=== PATIENT | female | born 1955 | race Caucasian/White ===

== ENCOUNTER 2017-03-08 18:04 | Inpatient (IN) | payer BC ==
[2017-03-08] MEDS ORDERED: Sodium Chloride 0.9% 10 ML Syringe FLUSH PRN (19:11)
[2017-03-08] MEDS ORDERED: Sodium Chloride 0.9% 1,000 ML IV SCH ×3 (19:30→22:20)
[2017-03-08] MEDS ORDERED: Acetaminophen 1,000 MG in Premix Bag 1 BAG IV ONE (20:06)
--- NOTE | 2017-03-08 20:18 | EDM.PDOC ---
ED HPI GENERAL MEDICAL PROBLEM - General Chief Complaint: Fever Stated Complaint: FEVER/DISORIENTED Time Seen by Provider: 03/08/17 18:45 Source of Information: Reports: Patient, Family History Limitations: Reports: Altered Mental Status - History of Present Illness INITIAL COMMENTS - FREE TEXT/NARRATIVE: Patient presents today with complaints of fever for 4 days. She states when checked at home, it has been as high as 104. She denies pain, nausea, vomiting , diarrhea, constipation or wounds. She was recently hospitalized in [place] for cellulitis of her left elbow and completed antibiotics for it three weeks ago. She currently uses 1ppd cigarettes. She denies use of illicit drugs. or pain medication. 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 Denies: Decreased Appetite, Weight Loss HEENT: Denies: Dental Pain, Ear Pain, Eye Pain, Rhinitis, Sinus Problem, Throat Pain, Vertigo, Vision Change Respiratory: Reports: Cough. Denies: Shortness of Breath, Wheezing, Sputum Cardiovascular: Denies: Chest Pain, Dyspnea on Exertion, Edema, Lightheadedness , Palpitations, PND, Syncope Endocrine: Denies: High Glucose, Low Glucose, Polyuria GI/Abdominal: Denies: Abdominal Pain, Black Stool, Bloody Stool, Constipation, Diarrhea, Difficulty Swallowing, Nausea, Vomiting : Denies: Discharge, Dysuria, Flank Pain, Frequency, Hematuria, Urgency Musculoskeletal: Reports: No Symptoms Skin: Reports: Wound, Other (small round healing lesion to left elbow, slough noted to center of wound <0.5cm in size). Denies: Mottled, Pallor, Bruising, Pruritis, Rash, Erythema Neurological: Reports: Confusion, Change in Speech, Other (Inappropriate speaking/words at times. ). Denies: Dizziness, Headache, Numbness, Seizure, Tingling, Trouble Speaking, Difficulty Walking Hematologic/Lymphatic: Reports: No Symptoms Immunologic: Reports: No Symptoms ED EXAM, SEPSIS - Physical Exam Exam: See Below Text/Narrative:: Patient presents with complaints of fever for 4 days, change in mental status and SOB with activity. Exam Limited By: Altered Mental Status General Appearance: Alert, WD/WN, No Apparent Distress Eye Exam: Bilateral Eye: Normal Inspection, Vision Changes Ears: Normal External Exam, Normal Canal, Hearing Grossly Normal, Normal TMs Nose: Normal Inspection, Normal Mucosa, No Blood Throat/Mouth: Normal Inspection, Normal Lips, Normal Teeth, Normal Gums, Normal Oropharynx, Normal Voice, No Airway Compromise Head: Atraumatic, Normocephalic Neck: Normal Inspection, Supple, Non-Tender, Full Range of Motion Respiratory/Chest: No Respiratory Distress, No Accessory Muscle Use, Chest Non- Tender, Crackles, Rhonchi Cardiovascular: Normal Peripheral Pulses, Regular Rate, Rhythm, No Edema, No Gallop, No Murmur, No Rub Peripheral Pulses: 2+: Radial (L), Radial (R), Dorsalis Pedis (L), Dorsalis Pedis (R) GI/Abdominal: Normal Bowel Sounds, Soft, Non-Tender, No Distention Back: Normal Inspection, Full Range of Motion. No: CVA Tenderness (R), CVA Tenderness (L) Extremities: Normal Inspection, Normal Range of Motion, Non-Tender, No Pedal Edema, Normal Capillary Refill, Other (Normal with exception of healing wound to left elbow. ) Neurological: Alert, Oriented, CN II-XII Intact, Inattentive, Slow to Respond, Other (Not speaking appropriate words at times, restless) Psychiatric: Other (Distracted, not concentrating, inappropriate at times. ) Lymphatic: Bilateral: No Adenopathy EKG INTERPRETATION EKG Date: 03/08/17 Rhythm: NSR P-wave: present QRS: normal ST-T: normal QT: normal Course - Vital Signs Last Recorded V/S: Last Vital Signs Temp 38.4 C H 03/08/17 21:43 Pulse 93 03/08/17 21:43 Resp 20 03/08/17 21:43 BP 167/65 H 03/08/17 21:43 Pulse Ox 94 L 03/08/17 21:43 - Orders/Labs/Meds Orders: Active Orders 24 hr Category Date Time Status Patient Status Manage Transfer [TRANSFER] Routine ADT 03/08/17 21:42 Active EKG Documentation Completion [RC] ASDIRECTED Care 03/08/17 20:21 Active RT Aerosol Therapy [RC] ASDIRECTED Care 03/08/17 20:41 Active Chest 2V [CR] Stat Exams 03/08/17 19:03 Taken CULTURE BLOOD [BC] Urgent Lab 03/08/17 19:15 Received CULTURE BLOOD [BC] Urgent Lab 03/08/17 19:25 Received UA W/MICROSCOPIC [URIN] Stat Lab 03/08/17 19:02 Uncollected Sodium Chloride 0.9% [Normal Saline] 1,000 ml Med 03/08/17 19:30 Active IV ASDIRECTED Sodium Chloride 0.9% [Saline Flush] Med 03/08/17 19:11 Active 10 ml FLUSH ASDIRECTED PRN cefTRIAXone [Rocephin] 2 gm Med 03/08/17 21:45 Active Sodium Chloride 0.9% [Normal Saline] 50 ml IV Q24H Blood Culture x2 Reflex Set [OM.PC] Urgent Oth 03/08/17 19:05 Ordered Saline Lock Insert [OM.PC] Routine Oth 03/08/17 19:11 Ordered Resuscitation Status Routine Resus Stat 03/08/17 21:44 Ordered EKG 12 Lead [EK] Routine Ther 03/08/17 20:21 Ordered Medication Orders Sodium Chloride (Normal Saline) 1,000 mls @ 500 mls/hr IV ASDIRECTED JUIDE Last Admin: 03/08/17 20:22 Dose: 500 mls/hr Ceftriaxone Sodium 2 gm/ (Sodium Chloride) 50 mls @ 100 mls/hr IV Q24H JUDIE Sodium Chloride (Saline Flush) 10 ml FLUSH ASDIRECTED PRN PRN Reason: Keep Vein Open Labs: Laboratory Tests 03/08/17 03/08/17 03/08/17 Range/Units 16:32 19:02 19:07 WBC 6.4 (4.5-11.0) K/uL RBC 4.00 (3.30-5.50) M/uL Hgb 13.4 (12.0-15.0) g/dL Hct 38.8 (36.0-48.0) % MCV 97 (80-98) fL MCH 34 H (27-31) pg MCHC 35 (32-36) % Plt Count 127 L (150-400) K/uL PT (9.5-12.0) sec INR (0.80-1.20) APTT (27.0-36.0) sec Puncture Site ABG pH (7.350-7.450) ABG pCO2 (35.0-42.0) mmHg ABG pO2 (75.0-100.0) mmHg ABG HCO3 (22.0-26.0) mmol/L ABG Total CO2 (21.0-25.0) mmol/L ABG O2 Saturation (95.0-98.0) % ABG O2 Content (15.0-23.0) %vol ABG Base Excess mm/L ABG Hemoglobin (12.0-16.0) g/dL ABG Oxyhemoglobin % ABG Carboxyhemoglobin (0.0-1.6) % ABG Methemoglobin % Addison Test O2 Delivery Device Oxygen Flow Rate L Sodium 134 L (140-148) mmol/L Potassium 4.7 (3.6-5.2) mmol/L Chloride 102 (100-108) mmol/L Carbon Dioxide 20 L (21-32) mmol/L Anion Gap 16.7 H (5.0-14.0) mmol/L BUN 22 H (7-18) mg/dL Creatinine 0.8 (0.6-1.0) mg/dL Est Cr Clr Drug Dosing 51.70 mL/min Estimated GFR (MDRD) > 60 (>60) Glucose 178 H (74-106) mg/dL Lactic Acid 1.6 (0.4-2.0) mmol/L Calcium 8.9 (8.5-10.1) mg/dL Total Bilirubin 0.5 (0.2-1.0) mg/dL AST 46 H (15-37) U/L ALT 39 (12-78) U/L Alkaline Phosphatase 171 H (46-116) U/L C-Reactive Protein (0.0-0.3) mg/dL Total Protein 7.4 (6.4-8.2) g/dL Albumin 3.2 L (3.4-5.0) g/dL Globulin 4.2 H (2.3-3.5) g/dL Albumin/Globulin Ratio 0.8 L (1.2-2.2) 03/08/17 03/08/17 03/08/17 Range/Units 19:07 20:37 20:45 WBC (4.5-11.0) K/uL RBC (3.30-5.50) M/uL Hgb (12.0-15.0) g/dL Hct (36.0-48.0) % MCV (80-98) fL MCH (27-31) pg MCHC (32-36) % Plt Count (150-400) K/uL PT 11.4 (9.5-12.0) sec INR 1.07 (0.80-1.20) APTT 27.1 (27.0-36.0) sec Puncture Site Rt radial ABG pH 7.497 H (7.350-7.450) ABG pCO2 26.1 L (35.0-42.0) mmHg ABG pO2 84.8 (75.0-100.0) mmHg ABG HCO3 20.0 L (22.0-26.0) mmol/L ABG Total CO2 17.7 L (21.0-25.0) mmol/L ABG O2 Saturation 97.2 (95.0-98.0) % ABG O2 Content 16.3 (15.0-23.0) %vol ABG Base Excess -1.7 mm/L ABG Hemoglobin 12.2 (12.0-16.0) g/dL ABG Oxyhemoglobin 94.5 % ABG Carboxyhemoglobin 2.3 H (0.0-1.6) % ABG Methemoglobin 0.5 % Addison Test Pass O2 Delivery Device Nasal cannula Oxygen Flow Rate L Sodium (140-148) mmol/L Potassium (3.6-5.2) mmol/L Chloride (100-108) mmol/L Carbon Dioxide (21-32) mmol/L Anion Gap (5.0-14.0) mmol/L BUN (7-18) mg/dL Creatinine (0.6-1.0) mg/dL Est Cr Clr Drug Dosing mL/min Estimated GFR (MDRD) (>60) Glucose (74-106) mg/dL Lactic Acid (0.4-2.0) mmol/L Calcium (8.5-10.1) mg/dL Total Bilirubin (0.2-1.0) mg/dL AST (15-37) U/L ALT (12-78) U/L Alkaline Phosphatase (46-116) U/L C-Reactive Protein 3.17 H (0.0-0.3) mg/dL Total Protein (6.4-8.2) g/dL Albumin (3.4-5.0) g/dL Globulin (2.3-3.5) g/dL Albumin/Globulin Ratio (1.2-2.2) Meds: Medications Generic Name Dose Route Start Last Admin Trade Name Freq PRN Reason Stop Dose Admin Sodium Chloride 1,000 mls @ 500 mls/hr 03/08/17 19:30 03/08/17 20:22 Normal Saline IV 500 mls/hr ASDIRECTED JUDIE Administration Ceftriaxone Sodium 2 gm/ 50 mls @ 100 mls/hr 03/08/17 21:45 Sodium Chloride IV Q24H JUDIE Sodium Chloride 10 ml 03/08/17 19:11 Saline Flush FLUSH ASDIRECTED PRN Keep Vein Open Discontinued Medications Generic Name Dose Route Start Last Admin Trade Name Freq PRN Reason Stop Dose Admin Albuterol/Ipratropium 3 ml 03/08/17 20:40 03/08/17 20:56 Duoneb 3.0-0.5 Mg/3 Ml NEB 03/08/17 20:41 3 ml ONETIME ONE Administration Acetaminophen 1,000 mg/ Premix 100 mls @ 400 mls/hr 03/08/17 20:06 03/08/17 20:44 IV 03/08/17 20:20 400 mls/hr NOW ONE Administration - Radiology Interpretation Free Text/Narrative:: Chest x-ray wet read, possible infiltrate to right upper lobe. X-ray reviewed with Dr. Casey. - Re-Assessments/Exams Free Text/Narrative Re-Assessment/Exam: 03/08/17 21:08 Patient notified of labwork, chest x-ray and need to stay for further sepsis work-up due to fever of unknown origin. Patient and her daughter in agreement. 03/08/17 21:[address] Casey, she will be admitted. Departure - Departure Time of Disposition: 22:01 Disposition: Admitted As Inpatient 64 Condition: fair Clinical Impression: Fever - Discharge Information Forms: ED Department Discharge - Problem List & Annotations (1) Fever SNOMED Code(s): 835668623 Code(s): R50.9 - FEVER, UNSPECIFIED Status: Acute Current Visit: Yes Qualifiers: Fever type: unspecified Qualified Code(s): R50.9 - Fever, unspecified - Problem List Review Problem List Initiated/Reviewed/Updated: Yes - My Orders Last 24 Hours: My Active Orders 03/08/17 19:02 UA W/MICROSCOPIC [URIN] Stat 03/08/17 19:03 Chest 2V [CR] Stat 03/08/17 19:05 Blood Culture x2 Reflex Set [OM.PC] Urgent 03/08/17 19:11 Sodium Chloride 0.9% [Saline Flush] 10 ml FLUSH ASDIRECTED PRN Saline Lock Insert [OM.PC] Routine 03/08/17 19:15 CULTURE BLOOD [BC] Urgent 03/08/17 19:25 CULTURE BLOOD [BC] Urgent 03/08/17 19:30 Sodium Chloride 0.9% [Normal Saline] 1,000 ml IV ASDIRECTED 03/08/17 20:21 EKG Documentation Completion [RC] ASDIRECTED EKG 12 Lead [EK] Routine 03/08/17 20:41 RT Aerosol Therapy [RC] ASDIRECTED - Assessment/Plan Last 24 Hours: My Active Orders 03/08/17 19:02 UA W/MICROSCOPIC [URIN] Stat 03/08/17 19:03 Chest 2V [CR] Stat 03/08/17 19:05 Blood Culture x2 Reflex Set [OM.PC] Urgent 03/08/17 19:11 Sodium Chloride 0.9% [Saline Flush] 10 ml FLUSH ASDIRECTED PRN Saline Lock Insert [OM.PC] Routine 03/08/17 19:15 CULTURE BLOOD [BC] Urgent 03/08/17 19:25 CULTURE BLOOD [BC] Urgent 03/08/17 19:30 Sodium Chloride 0.9% [Normal Saline] 1,000 ml IV ASDIRECTED 03/08/17 20:21 EKG Documentation Completion [RC] ASDIRECTED EKG 12 Lead [EK] Routine 03/08/17 20:41 RT Aerosol Therapy [RC] ASDIRECTED Assessment:: Makenzie is a 61 year old female presenting with fever and change in mental status. Fever decreased after IV tylenol, breath sounds improved with duo neb. Patient remained tachypnic and with fever. She will be admitted per Dr. Casey.
[2017-03-08] MEDS ORDERED: Albuterol/Ipratropium 3.0-0.5 MG/3 ML Neb Soln NEB ONE (20:40)
[2017-03-08] MEDS ORDERED: cefTRIAXone 2 GM in Sodium Chloride 0.9% 50 ML IV SCH (21:45)
--- NOTE | 2017-03-08 21:53 | PCM.HP ---
H&P History of Present Illness - General Date of Service: 03/08/17 Admit Problem/Dx: Admission Diagnosis/Problem Admission Diagnosis/Problem Fever Source of Information: Patient, Family, Provider History Limitations: Reports: No Limitations - History of Present Illness Initial Comments - Free Text/Narative: Makenzie presents to the emergency room tonight with fever to 103. She first noticed fever, fatigue and headache on Friday, 4 days ago. Symptoms have slowly progressed over the past few days. She has become more fatigued and this evening her family noted that she was confused compared to her baseline. She has had a temperature as high as 105 in the emergency room. She does not endorse a cough, sore throat, chest pain, abdominal pain or increased joint pain from baseline. She had a couple episodes of loose stools a few days ago but this resolved. No urinary complaints. No skin rashes. She did have a small tick stuck to her knee but maybe only for a couple of hours. The tick was not engorged. She does note that her and son-in-law have had similar high fevers and fatigue. They all got better after a few days without any sort of treatment. Workup in the emergency room has revealed probable evidence for sepsis with tachycardia, tachypnea and confusion. The exact source of her infection was not entirely clear at this time. Her examination is relatively benign. Lactic acid level is normal. Given her rheumatoid arthritis causing immunosuppression she is at a high-risk for worsening of her infection and will need close monitoring. 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 Pertinent positives and negatives are noted in the history of present illness. All other systems were reviewed and were negative except as noted. Exam - Exam Exam: See Below - Vital Signs Vital Signs: Last Vital Signs Temp 38.4 C H 03/08/17 21:43 Pulse 93 03/08/17 21:43 Resp 20 03/08/17 21:43 BP 167/65 H 03/08/17 21:43 Pulse Ox 94 L 03/08/17 21:43 Weight: 72.9 kg - Exam Quality Assessment: No: Supplemental Oxygen General: Alert, Oriented, Cooperative, Mild Distress, Other (diaphoretic) HEENT: Conjunctiva Clear, Pupils Equal. No: Mucosa Moist & [place] (dry), Scleral Icterus Neck: Supple, Trachea Midline. No: Lymphadenopathy Lungs: Clear to Auscultation, Normal Respiratory Effort. No: Wheezing Cardiovascular: Regular Rhythm, Tachycardia, Systolic Murmur (LLSB) Abdomen: Normal Bowel Sounds, Soft. No: Distention, Tenderness Back Exam: Normal Inspection, Full Range of Motion Extremities: Normal Inspection, Normal Pulses. No: Cyanosis, Edema Peripheral Pulses: 2+: Dorsalis Pedis (L), Dorsalis Pedis (R) Skin: Warm, Moist Neuro Extensive - Mental Status: Alert, Oriented x3, Nl Response to Commands Neuro Extensive - Motor, Sensory, Reflexes: CN II-XII Intact. No: Dysarthria, Abnormal Motor, Tremor Psychiatric: Alert, Normal Affect - Patient Data Lab Results last 24 hrs: Laboratory Results - last 24 hr 03/08/17 03/08/17 03/08/17 Range/Units 16:32 19:02 19:07 WBC 6.4 (4.5-11.0) K/uL RBC 4.00 (3.30-5.50) M/uL Hgb 13.4 (12.0-15.0) g/dL Hct 38.8 (36.0-48.0) % MCV 97 (80-98) fL MCH 34 H (27-31) pg MCHC 35 (32-36) % Plt Count 127 L (150-400) K/uL PT (9.5-12.0) sec INR (0.80-1.20) APTT (27.0-36.0) sec Puncture Site ABG pH (7.350-7.450) ABG pCO2 (35.0-42.0) mmHg ABG pO2 (75.0-100.0) mmHg ABG HCO3 (22.0-26.0) mmol/L ABG Total CO2 (21.0-25.0) mmol/L ABG O2 Saturation (95.0-98.0) % ABG O2 Content (15.0-23.0) %vol ABG Base Excess mm/L ABG Hemoglobin (12.0-16.0) g/dL ABG Oxyhemoglobin % ABG Carboxyhemoglobin (0.0-1.6) % ABG Methemoglobin % Addison Test O2 Delivery Device Oxygen Flow Rate L Sodium 134 L (140-148) mmol/L Potassium 4.7 (3.6-5.2) mmol/L Chloride 102 (100-108) mmol/L Carbon Dioxide 20 L (21-32) mmol/L Anion Gap 16.7 H (5.0-14.0) mmol/L BUN 22 H (7-18) mg/dL Creatinine 0.8 (0.6-1.0) mg/dL Est Cr Clr Drug Dosing 51.70 mL/min Estimated GFR (MDRD) > 60 (>60) Glucose 178 H (74-106) mg/dL Lactic Acid 1.6 (0.4-2.0) mmol/L Calcium 8.9 (8.5-10.1) mg/dL Total Bilirubin 0.5 (0.2-1.0) mg/dL AST 46 H (15-37) U/L ALT 39 (12-78) U/L Alkaline Phosphatase 171 H (46-116) U/L C-Reactive Protein (0.0-0.3) mg/dL Total Protein 7.4 (6.4-8.2) g/dL Albumin 3.2 L (3.4-5.0) g/dL Globulin 4.2 H (2.3-3.5) g/dL Albumin/Globulin Ratio 0.8 L (1.2-2.2) 03/08/17 03/08/17 03/08/17 Range/Units 19:07 20:37 20:45 WBC (4.5-11.0) K/uL RBC (3.30-5.50) M/uL Hgb (12.0-15.0) g/dL Hct (36.0-48.0) % MCV (80-98) fL MCH (27-31) pg MCHC (32-36) % Plt Count (150-400) K/uL PT 11.4 (9.5-12.0) sec INR 1.07 (0.80-1.20) APTT 27.1 (27.0-36.0) sec Puncture Site Rt radial ABG pH 7.497 H (7.350-7.450) ABG pCO2 26.1 L (35.0-42.0) mmHg ABG pO2 84.8 (75.0-100.0) mmHg ABG HCO3 20.0 L (22.0-26.0) mmol/L ABG Total CO2 17.7 L (21.0-25.0) mmol/L ABG O2 Saturation 97.2 (95.0-98.0) % ABG O2 Content 16.3 (15.0-23.0) %vol ABG Base Excess -1.7 mm/L ABG Hemoglobin 12.2 (12.0-16.0) g/dL ABG Oxyhemoglobin 94.5 % ABG Carboxyhemoglobin 2.3 H (0.0-1.6) % ABG Methemoglobin 0.5 % Addison Test Pass O2 Delivery Device Nasal cannula Oxygen Flow Rate L Sodium (140-148) mmol/L Potassium (3.6-5.2) mmol/L Chloride (100-108) mmol/L Carbon Dioxide (21-32) mmol/L Anion Gap (5.0-14.0) mmol/L BUN (7-18) mg/dL Creatinine (0.6-1.0) mg/dL Est Cr Clr Drug Dosing mL/min Estimated GFR (MDRD) (>60) Glucose (74-106) mg/dL Lactic Acid (0.4-2.0) mmol/L Calcium (8.5-10.1) mg/dL Total Bilirubin (0.2-1.0) mg/dL AST (15-37) U/L ALT (12-78) U/L Alkaline Phosphatase (46-116) U/L C-Reactive Protein 3.17 H (0.0-0.3) mg/dL Total Protein (6.4-8.2) g/dL Albumin (3.4-5.0) g/dL Globulin (2.3-3.5) g/dL Albumin/Globulin Ratio (1.2-2.2) Result Diagrams: 03/08/17 16:32 03/08/17 19:02 Imaging Impressions last 24 hrs: CXR - images personally reviewed - there is no evidence for mass, infiltrate, effusion or cardiomegally. Appears much better than the x ray from a few years ago *Q Meaningful Use (ADM) - VTE *Q VTE Criteria *Q: - VTE Risk Assess *Q Each Risk Factor Represents 1 Point: Obesity (BMI greater than 30) Total Score 1 Point Risk Factors: 1 Each Risk Factor Represents 2 Points: Age 60 - 74 Years Total Score 2 Point Risk Factors: 2 Each Risk Factor Represents 3 Points: None Total Score 3 Point Risk Factors: 0 Each Risk Factor Represents 5 Points: None Total Score 5 Point Risk Factors: 0 Venous Thromboembolism Risk Factor Score *Q: 3 - Stroke *Q Stroke Criteria *Q: - AMI *Q AMI Criteria *Q: - Problem List (1) Fever SNOMED Code(s): 557698390 ICD Code: R50.9 - FEVER, UNSPECIFIED Status: Acute Current Visit: Yes Qualifiers: Fever type: unspecified Qualified Code(s): R50.9 - Fever, unspecified (2) Rheumatoid arthritis SNOMED Code(s): 19507185 ICD Code: M06.9 - RHEUMATOID ARTHRITIS, UNSPECIFIED Status: Chronic Current Visit: Yes Qualifiers: Rheumatoid arthritis location: multiple sites Rheumatoid factor presence: unspecified presence Qualified Code(s): M06.9 - Rheumatoid arthritis, unspecified Problem List Initiated/Reviewed/Updated: Yes Orders Last 24hrs: Active Orders 24 hr Category Date Time Status Patient Status Manage Transfer [TRANSFER] Routine ADT 03/08/17 21:42 Ordered EKG Documentation Completion [RC] ASDIRECTED Care 03/08/17 20:21 Active RT Aerosol Therapy [RC] ASDIRECTED Care 03/08/17 20:41 Active Chest 2V [CR] Stat Exams 03/08/17 19:03 Taken CULTURE BLOOD [BC] Urgent Lab 03/08/17 19:15 Received CULTURE BLOOD [BC] Urgent Lab 03/08/17 19:25 Received UA W/MICROSCOPIC [URIN] Stat Lab 03/08/17 19:02 Uncollected Sodium Chloride 0.9% [Normal Saline] 1,000 ml Med 03/08/17 19:30 Active IV ASDIRECTED Sodium Chloride 0.9% [Saline Flush] Med 03/08/17 19:11 Active 10 ml FLUSH ASDIRECTED PRN cefTRIAXone [Rocephin] 2 gm Med 03/08/17 21:45 Active Sodium Chloride 0.9% [Normal Saline] 50 ml IV Q24H Blood Culture x2 Reflex Set [OM.PC] Urgent Oth 03/08/17 19:05 Ordered Saline Lock Insert [OM.PC] Routine Oth 03/08/17 19:11 Ordered Resuscitation Status Routine Resus Stat 03/08/17 21:44 Ordered EKG 12 Lead [EK] Routine Ther 03/08/17 20:21 Ordered Medication Orders Sodium Chloride (Normal Saline) 1,000 mls @ 500 mls/hr IV ASDIRECTED JUDIE Last Admin: 03/08/17 20:22 Dose: 500 mls/hr Ceftriaxone Sodium 2 gm/ (Sodium Chloride) 50 mls @ 100 mls/hr IV Q24H JUDIE Sodium Chloride (Saline Flush) 10 ml FLUSH ASDIRECTED PRN PRN Reason: Keep Vein Open Assessment/Plan Comment:: Assessment and plan - Fever with sepsis - exact source is not entirely clear at this point. Viral infection is possible. Occult bacterial infection is possible. Blood cultures have been collected. Evidence for sepsis includes tachycardia, fever, tachypnea and confusion. She is immunosuppressed at high risk for complications and will need close monitoring. Tickborne disease is possible but I don't believe that her exposure was all that impressive. -ICU admission with sepsis -Doxycycline and ceftriaxone to cover respiratory pathogens empirically -IV fluid boluses and fluids overnight -Followup cultures -Repeat labs in the morning Rheumatoid arthritis - Chronic, stable no evidence for exacerbation. -Hold methotrexate with current infection Essential hypertension - Blood pressure elevated this evening. Hopefully will improve with fluids. -Continue all medications Type 2 diabetes mellitus - on only metformin. Controlled by history. -Continue metformin Maintenance issues - - DVT prophylaxis - mechanical - GI prophylaxis - Not indicated - Nutrition - consistent carbohydrate diet - Johnson catheter - Not indicated CODE STATUS - full code Admission justification - This patient will be admitted for inpatient services and is medically appropriate meeting medical necessity for inpatient admission as outlined in my documentation. I reasonably expect the patient will require inpatient services that span a period time over 2 midnights. I reasonably expect this patient to be discharged or transferred within 96 hours [facility]. Disposition - anticipate discharge home after the hospital stay Primary care physician - Dr Matthew Casey M.D.
[2017-03-08] MEDS ORDERED: Polyethylene Glycol 3350 Powder 17 GM Packet PO PRN (22:20)
[2017-03-08] MEDS ORDERED: Ondansetron 4 MG Tab.DIS PO PRN (22:20)
[2017-03-08] MEDS ORDERED: Albuterol/Ipratropium 3.0-0.5 MG/3 ML Neb Soln NEB PRN (22:20)
[2017-03-08] MEDS ORDERED: Doxycycline 100 MG in Sodium Chloride 0.9% 100 ML IV SCH (22:30)
[2017-03-09] MEDS: Ibuprofen 600 MG Tab PO PRN ×3 (03:41→19:25)
[2017-03-09] MEDS: metFORMIN 500 MG Tab PO SCH ×2 (07:55→16:15)
[2017-03-09] MEDS: Folic Acid 1 MG Tab PO SCH (07:59)
[2017-03-09] MEDS: amLODIPine 5 MG Tab PO SCH (08:00)
[2017-03-09] MEDS: Lisinopril 20 MG Tab PO SCH (08:01)
[2017-03-09] MEDS ORDERED: Non-Formulary Medication 1 Each (Lisinopril [Lisinopril] 40 MG) PO SCH (09:00)
--- NOTE | 2017-03-09 09:11 | PCM.PN ---
- General Info Date of Service: 03/09/17 Functional Status: Reports: pain controlled, tolerating diet, ambulating - Review of Systems General: Reports: Fever, Weakness Gastrointestinal: Denies: Abdominal pain Neurological: Denies: Confusion, Headache Systems Review Comment:: No acute events overnight. One episode of fever and diaphoresis that responded well to anti-inflammatories. No headache today. Mental status seems to be back to normal. Mild cough overnight but none this morning. No abdominal pain or diarrhea. She feels like the mild redness around her tick bite has improved significantly. - Patient Data Vitals - most recent: Last Vital Signs Temp 36.8 C 03/09/17 07:34 Pulse 78 03/09/17 07:34 Resp 19 03/09/17 07:34 BP 122/68 03/09/17 08:00 Pulse Ox 96 03/09/17 07:34 Weight - most recent: 73.573 kg I&O - last 24 hours: Intake & Output 03/08/17 03/09/17 03/09/17 22:59 06:59 14:59 Intake Total 1050 700 Output Total 800 Balance 1050 -100 Lab Results last 24 hrs: Laboratory Results - last 24 hr 03/08/17 03/09/17 03/09/17 Range/Units 22:19 04:49 04:49 WBC 5.6 (4.5-11.0) K/uL RBC 3.58 (3.30-5.50) M/uL Hgb 11.7 L (12.0-15.0) g/dL Hct 35.1 L (36.0-48.0) % MCV 98 (80-98) fL MCH 33 H (27-31) pg MCHC 33 (32-36) % Plt Count 86 L (150-400) K/uL Sodium 137 L (140-148) mmol/L Potassium 4.0 (3.6-5.2) mmol/L Chloride 106 (100-108) mmol/L Carbon Dioxide 20 L (21-32) mmol/L Anion Gap 15.0 H (5.0-14.0) mmol/L BUN 15 (7-18) mg/dL Creatinine 0.6 (0.6-1.0) mg/dL Est Cr Clr Drug Dosing 68.93 mL/min Estimated GFR (MDRD) > 60 (>60) Glucose 150 H (74-106) mg/dL Calcium 7.9 L (8.5-10.1) mg/dL Total Bilirubin 0.5 (0.2-1.0) mg/dL AST 41 H (15-37) U/L ALT 30 (12-78) U/L Alkaline Phosphatase 119 H (46-116) U/L Total Protein 6.2 L (6.4-8.2) g/dL Albumin 2.7 L (3.4-5.0) g/dL Globulin 3.5 (2.3-3.5) g/dL Albumin/Globulin Ratio 0.8 L (1.2-2.2) Urine Color Yellow Urine Appearance Slightly cloudy Urine pH 5.0 (4.5-8.0) Ur Specific [place] 1.015 (1.008-1.030) Urine Protein Negative (NEGATIVE) mg/dL Urine Glucose (UA) 100 H (NEGATIVE) mg/dL Urine Ketones Negative (NEGATIVE) mg/dL Urine Occult Blood Moderate (NEGATIVE) Urine Nitrite Negative (NEGATIVE) Urine Bilirubin Negative (NEGATIVE) Urine Urobilinogen Normal (NORMAL) mg/dL Ur Leukocyte Esterase Negative (NEGATIVE) Urine RBC 0-5 (0-5) Urine WBC 0-5 (0-5) Ur Epithelial Cells Few Amorphous Sediment Not seen Urine Bacteria Rare Urine Mucus Moderate Med Orders - Current: Current Medications Acetaminophen (Tylenol) 650 mg PO Q4H PRN PRN Reason: Pain (Mild 1-3)/fever Albuterol/Ipratropium (Duoneb 3.0-0.5 Mg/3 Ml) 3 ml NEB QID PRN PRN Reason: Shortness Of Breath/wheezing Last Admin: 03/09/17 03:41 Dose: 3 ml Amlodipine Besylate (Norvasc) 5 mg PO DAILY [facility] Last Admin: 03/09/17 08:00 Dose: 5 mg Folic Acid (Folic Acid) 1 mg PO DAILY [facility] Last Admin: 03/09/17 07:59 Dose: 1 mg Ibuprofen (Motrin) 600 mg PO Q6H PRN PRN Reason: Pain/Fever Last Admin: 03/09/17 03:41 Dose: 600 mg Lisinopril (Prinivil) 40 mg PO DAILY [facility] Last Admin: 03/09/17 08:01 Dose: 40 mg Metformin HCl (Glucophage) 500 mg PO BIDMEALS [facility] Last Admin: 03/09/17 07:55 Dose: 500 mg Ondansetron HCl (Zofran Odt) 4 mg PO Q6H PRN PRN Reason: Nausea able to take PO Polyethylene Glycol (Miralax) 17 gm PO DAILY PRN PRN Reason: Constipation Sodium Chloride (Saline Flush) 10 ml FLUSH ASDIRECTED PRN PRN Reason: Keep Vein Open Discontinued Medications Albuterol/Ipratropium (Duoneb 3.0-0.5 Mg/3 Ml) 3 ml NEB ONETIME ONE Stop: 03/08/17 20:41 Last Admin: 03/08/17 20:56 Dose: 3 ml Sodium Chloride (Normal Saline) 1,000 mls @ 500 mls/hr IV ASDIRECTED [facility] Last Admin: 03/08/17 20:22 Dose: 500 mls/hr Acetaminophen 1,000 mg/ Premix 100 mls @ 400 mls/hr IV NOW ONE Stop: 03/08/17 20:20 Last Admin: 03/08/17 20:44 Dose: 400 mls/hr Ceftriaxone Sodium 2 gm/ (Sodium Chloride) 50 mls @ 100 mls/hr IV Q24H [facility] Last Admin: 03/08/17 22:52 Dose: 100 mls/hr Doxycycline Hyclate 100 mg/ (Sodium Chloride) 100 mls @ 100 mls/hr IV Q12H [facility] Last Admin: 03/08/17 23:35 Dose: 100 mls/hr Sodium Chloride (Normal Saline) 1,000 mls @ 125 mls/hr IV ASDIRECTED [facility] Last Admin: 03/09/17 01:15 Dose: 125 mls/hr Sodium Chloride (Normal Saline) 1,000 mls @ 999 mls/hr IV .BOLUS [facility] Last Admin: 03/08/17 22:44 Dose: 999 mls/hr Ceftriaxone Sodium 2 gm/ (Sodium Chloride) 50 mls @ 100 mls/hr IV Q24H [facility] Non-Formulary Medication (Lisinopril [Lisinopril]) 40 mg PO DAILY [facility] - Exam Quality Assessment: No: supplemental oxygen General: alert, oriented, cooperative, no acute distress Neck: supple Lungs: Normal respiratory effort Cardiovascular: Regular Rate, Regular Rhythm Abdomen: soft, no distension Extremities: no edema, no cyanosis Skin: warm, dry Psy/Mental Status: alert, normal affect - Problem List & Annotations (1) Fever SNOMED Code(s): 395707080 Code(s): R50.9 - FEVER, UNSPECIFIED Status: Acute Current Visit: Yes Qualifiers: Fever type: unspecified Qualified Code(s): R50.9 - Fever, unspecified (2) Rheumatoid arthritis SNOMED Code(s): 44752265 Code(s): M06.9 - RHEUMATOID ARTHRITIS, UNSPECIFIED Status: Chronic Current Visit: Yes Qualifiers: Rheumatoid arthritis location: multiple sites Rheumatoid factor presence: unspecified presence Qualified Code(s): M06.9 - Rheumatoid arthritis, unspecified - Problem List Review Problem List Initiated/Reviewed/Updated: Yes - My Orders Last 24 Hours: My Active Orders 03/08/17 21:44 Resuscitation Status Routine 03/08/17 22:20 Patient Status [ADT] Routine Intake and Output [RC] QSHIFT Notify Provider Vital Signs [RC] ASDIRECTED Oxygen Therapy [RC] PRN RT Aerosol Therapy [RC] ASDIRECTED Up With Assistance [RC] ASDIRECTED VTE/DVT Education [RC] Per Unit Routine Vital Signs [RC] Q4H Acetaminophen [Tylenol] 650 mg PO Q4H PRN Albuterol/Ipratropium [DuoNeb 3.0-0.5 MG/3 ML] 3 ml NEB QID PRN Ibuprofen [Motrin] 600 mg PO Q6H PRN Ondansetron [Zofran ODT] 4 mg PO Q6H PRN Polyethylene Glycol 3350 [MiraLAX] 17 gm PO DAILY PRN Sequential Compression Device [OM.PC] Per Unit Routine 03/09/17 09:00 Lisinopril [Prinivil] 40 mg PO DAILY 03/09/17 09:07 Convert IV to Saline Lock [OM.PC] Routine 03/09/17 09:08 Discontinue Telemetry Monitoring [Cardiac Monitoring Discontinue] [RC] Click to Edit 03/09/17 21:00 Doxycycline [Vibramycin] 100 mg PO BID 03/10/17 05:00 CBC W/O DIFF,HEMOGRAM [HEME] Timed (1) COMPREHENSIVE METABOLIC PN,CMP [CHEM] Timed EHRLICHIA CHAFFEENSIS, IGG&IGM [REF] Timed - Plan Plan:: Assessment and plan - Fever with sepsis - exact source is not entirely clear at this point but I think anaplasmosis seems to be the most likely diagnosis at this time. Viral syndrome could also be considered. Sepsis seems to have resolved with normalization of respiratory rate and heart rate. Cultures negative so far. -Continue doxycycline -Saline lock IV -Followup cultures -Repeat labs in the morning -Centile before Anaplasmosis Rheumatoid arthritis - Chronic, stable no evidence for exacerbation. -Hold methotrexate with current infection Essential hypertension - Blood pressure stable today. -Continue all medications Type 2 diabetes mellitus - on only metformin. Controlled by history. -Continue metformin Maintenance issues - - DVT prophylaxis - mechanical - GI prophylaxis - Not indicated - Nutrition - consistent carbohydrate diet - Johnson catheter - Not indicated Disposition - anticipate discharge home after the hospital stay Vin Casey M.D.
[2017-03-09] MEDS: Acetaminophen 325 MG Tab PO PRN ×2 (16:14→20:27)
[2017-03-09] MEDS ORDERED: cefTRIAXone 2 GM in Sodium Chloride 0.9% 50 ML IV SCH (20:00)
[2017-03-09] MEDS: Doxycycline 100 MG Cap PO SCH (20:27)
[2017-03-10] MEDS: Acetaminophen 325 MG Tab PO PRN ×3 (00:40→11:07)
[2017-03-10] MEDS: Ibuprofen 600 MG Tab PO PRN ×2 (03:52→10:03)
[2017-03-10 07:10] VITALS: BP 132/54
[2017-03-10] MEDS: Folic Acid 1 MG Tab PO SCH (08:24)
[2017-03-10] MEDS: metFORMIN 500 MG Tab PO SCH (08:24)
[2017-03-10] MEDS: amLODIPine 5 MG Tab PO SCH (08:24)
[2017-03-10] MEDS: Lisinopril 20 MG Tab PO SCH (08:26)
[2017-03-10] MEDS: Doxycycline 100 MG Cap PO SCH (08:26)
--- NOTE | 2017-03-10 10:02 | CR ---
Chest 2V FINDINGS: The heart and vascular structures are normal in appearance. No infiltrates or effusions ar e demonstrated. The skeletal structures are unremarkable. IMPRESSION: Negative exam.
--- NOTE | 2017-03-10 11:18 | PCM.DCSUM1 ---
Discharge Summary - Hospital Course Brief History: 61-year-old female with history of rheumatoid arthritis on immunosuppressive medications who presents with fever greater than 103 and was admitted for further workup and management with initial source not entirely clear - Discharge Data Discharge Date: 03/10/17 Discharge Disposition: Home, Self-Care 01 Condition: Good - Discharge Diagnosis/Problem(s) (1) Anaplasmosis SNOMED Code(s): 781509744 ICD Code: A77.49 - OTHER EHRLICHIOSIS Status: Acute (2) Fever SNOMED Code(s): 940433592 ICD Code: R50.9 - FEVER, UNSPECIFIED Status: Acute Qualifiers: Fever type: unspecified Qualified Code(s): R50.9 - Fever, unspecified (3) Rheumatoid arthritis SNOMED Code(s): 68942738 ICD Code: M06.9 - RHEUMATOID ARTHRITIS, UNSPECIFIED Status: Chronic Qualifiers: Rheumatoid arthritis location: multiple sites Rheumatoid factor presence: unspecified presence Qualified Code(s): M06.9 - Rheumatoid arthritis, unspecified - Patient Summary/Data Labs Pending at D/C: Anaplasmosis titer Hospital Course: Makenzie presented to the emergency room with several days of fever, headache and fatigue. Workup in the emergency room revealed fever but no obvious cause for the fever. Viral cause versus anaplasmosis was considered. She was empirically started on doxycycline and received 1 dose of ceftriaxone at the time of admission. Overnight following admission her temperature curve did improve though she did have several episodes of diaphoresis. The morning after admission she is feeling a fair amount better. Laboratory studies certainly could be consistent with anaplasmosis or a viral syndrome at this point with low platelets, low normal white blood cell count, mildly elevated AST. We elected to continue antibiotics and did send off titers for anaplasmosis. She did spike additional fevers actually 24 hours after admission. I much more suspicious that she has anaplasmosis with a recent tick bite. Clinically she is improving with hydration and antibiotics. We did send off titers for anaplasmosis but they're pending at this time. She feels well at this time and has been afebrile since last night. She is interested in outpatient management at this point with oral antibiotics. Provided a prescription for 19 additional days of antibiotics. I did encourage her to take antibiotics with food and also warned her about the potential for the skin to be more sensitive to the sun while on the antibiotics. I will contact her with titer results later in the week. She can follow-up if her symptoms do not continue to improve or they get worse. - Patient Instructions Diet: Diabetic Diet Activity: As Tolerated Showering/Bathing: May Shower Notify Provider of: Fever, Increased Pain, Nausea and/or Vomiting Other/Special Instructions: 1. 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 I recommend 19 additional days of antibiotic therapy for a total of 21 days. You should take doxycycline 100 mg twice daily with food to help minimize stomach upset. This medication may make your skin more sensitive to the sun so you should be very careful with your outside during daylight hours. You should cover as much of the your exposed skin or use sunscreen to help avoid sunburn. 2. You may have additional fever spikes over the next few days as this infection is treated. You can use acetaminophen 650 mg every 4 hours as needed for pain/fever. You may also utilize ibuprofen 600 mg in between your acetaminophen doses to help with pain or fever. 3. Please seek medical attention if you develop a high fever that does not improve with acetaminophen or anti-inflammatory medications were if you develop persistent vomiting or severe diarrhea. - Discharge Plan Prescriptions/Med Rec: Doxycycline Hyclate 100 mg PO BID #38 capsule Home Medications: Home Meds Folic Acid 1 mg PO DAILY 03/08/17 [History] Lisinopril 40 mg PO DAILY 03/08/17 [History] Methotrexate Sodium [Methotrexate] 20 mg PO ASDIRECTED 03/08/17 [History] Naproxen 500 mg PO DAILY 03/08/17 [History] amLODIPine Besylate [Amlodipine Besylate] 5 mg PO DAILY 03/08/17 [History] metFORMIN [Glucophage] 500 mg PO BIDMEALS 03/08/17 [History] Doxycycline Hyclate 100 mg PO BID #38 capsule 03/10/17 [Rx] Patient Handouts: Ehrlichiosis and Anaplasmosis, Doxycycline tablets or capsules Referrals: Dimitry Castro MD [Primary Care Provider] - (followup if your symptoms do not continue to get better or the fever worsens) - Discharge Summary/Plan Comment DC Time >30 min.: No (25) - Patient Data Vitals - Most Recent: Last Vital Signs Temp 37.2 C 03/10/17 11:07 Pulse 79 03/10/17 07:06 Resp 16 03/10/17 07:06 BP 132/54 L 03/10/17 08:26 Pulse Ox 94 L 03/10/17 07:06 Weight - Most Recent: 73.573 kg I&O - Last 24 hours: Intake & Output 03/09/17 03/10/17 03/10/17 22:59 06:59 14:59 Intake Total 720 300 240 Balance 720 300 240 Lab Results - Last 24 hrs: Laboratory Results - last 24 hr 03/10/17 03/10/17 Range/Units 05:58 05:58 WBC 6.2 (4.5-11.0) K/uL RBC 3.70 (3.30-5.50) M/uL Hgb 12.2 (12.0-15.0) g/dL Hct 36.3 (36.0-48.0) % MCV 98 (80-98) fL MCH 33 H (27-31) pg MCHC 34 (32-36) % Plt Count 76 L (150-400) K/uL Sodium 139 L (140-148) mmol/L Potassium 4.7 (3.6-5.2) mmol/L Chloride 106 (100-108) mmol/L Carbon Dioxide 23 (21-32) mmol/L Anion Gap 14.7 H (5.0-14.0) mmol/L BUN 11 (7-18) mg/dL Creatinine 0.7 (0.6-1.0) mg/dL Est Cr Clr Drug Dosing 59.09 mL/min Estimated GFR (MDRD) > 60 (>60) Glucose 162 H (74-106) mg/dL Calcium 8.3 L (8.5-10.1) mg/dL Total Bilirubin 0.6 (0.2-1.0) mg/dL AST 66 H (15-37) U/L ALT 39 (12-78) U/L Alkaline Phosphatase 124 H (46-116) U/L Total Protein 6.2 L (6.4-8.2) g/dL Albumin 2.7 L (3.4-5.0) g/dL Globulin 3.5 (2.3-3.5) g/dL Albumin/Globulin Ratio 0.8 L (1.2-2.2) Med Orders - Current: Current Medications Acetaminophen (Tylenol) 650 mg PO Q4H PRN PRN Reason: Pain (Mild 1-3)/fever Last Admin: 03/10/17 11:07 Dose: 650 mg Albuterol/Ipratropium (Duoneb 3.0-0.5 Mg/3 Ml) 3 ml NEB QID PRN PRN Reason: Shortness Of Breath/wheezing Last Admin: 03/09/17 03:41 Dose: 3 ml Amlodipine Besylate (Norvasc) 5 mg PO DAILY [facility] Last Admin: 03/10/17 08:24 Dose: 5 mg Doxycycline Hyclate (Vibramycin) 100 mg PO BID [facility] Last Admin: 03/10/17 08:26 Dose: 100 mg Folic Acid (Folic Acid) 1 mg PO DAILY [facility] Last Admin: 03/10/17 08:24 Dose: 1 mg Ibuprofen (Motrin) 600 mg PO Q6H PRN PRN Reason: Pain/Fever Last Admin: 03/10/17 10:03 Dose: 600 mg Lisinopril (Prinivil) 40 mg PO DAILY [facility] Last Admin: 03/10/17 08:26 Dose: 40 mg Metformin HCl (Glucophage) 500 mg PO BIDMEALS [facility] Last Admin: 03/10/17 08:24 Dose: 500 mg Ondansetron HCl (Zofran Odt) 4 mg PO Q6H PRN PRN Reason: Nausea able to take PO Polyethylene Glycol (Miralax) 17 gm PO DAILY PRN PRN Reason: Constipation Sodium Chloride (Saline Flush) 10 ml FLUSH ASDIRECTED PRN PRN Reason: Keep Vein Open Discontinued Medications Albuterol/Ipratropium (Duoneb 3.0-0.5 Mg/3 Ml) 3 ml NEB ONETIME ONE Stop: 03/08/17 20:41 Last Admin: 03/08/17 20:56 Dose: 3 ml Sodium Chloride (Normal Saline) 1,000 mls @ 500 mls/hr IV ASDIRECTED [facility] Last Admin: 03/08/17 20:22 Dose: 500 mls/hr Acetaminophen 1,000 mg/ Premix 100 mls @ 400 mls/hr IV NOW ONE Stop: 03/08/17 20:20 Last Admin: 03/08/17 20:44 Dose: 400 mls/hr Ceftriaxone Sodium 2 gm/ (Sodium Chloride) 50 mls @ 100 mls/hr IV Q24H [facility] Last Admin: 03/08/17 22:52 Dose: 100 mls/hr Doxycycline Hyclate 100 mg/ (Sodium Chloride) 100 mls @ 100 mls/hr IV Q12H [facility] Last Admin: 03/08/17 23:35 Dose: 100 mls/hr Sodium Chloride (Normal Saline) 1,000 mls @ 125 mls/hr IV ASDIRECTED [facility] Last Admin: 03/09/17 01:15 Dose: 125 mls/hr Sodium Chloride (Normal Saline) 1,000 mls @ 999 mls/hr IV .BOLUS [facility] Last Admin: 03/08/17 22:44 Dose: 999 mls/hr Ceftriaxone Sodium 2 gm/ (Sodium Chloride) 50 mls @ 100 mls/hr IV Q24H [facility] Non-Formulary Medication (Lisinopril [Lisinopril]) 40 mg PO DAILY [facility] *Q Meaningful Use (DIS) - VTE *Q VTE Criteria *Q: - Stroke *Q Stroke Criteria *Q: - AMI *Q AMI Criteria *Q:
== END 2017-03-10 11:38 | disposition home or self-care (01) | DRG 724 ==
LOC: JP.ED 18:04 → JP.ICU 21:42 → JP.2SS 03-09 14:03
PROVIDERS: ADMIT Internal Medicine; ATTEND Internal Medicine
DX: A77.49 Other ehrlichiosis (principal); Z79.2 Long term (current) use of antibiotics; I10 Essential (primary) hypertension; F17.210 Nicotine dependence, cigarettes, uncomplicated; E11.9 Type 2 diabetes mellitus without complications; M06.9 Rheumatoid arthritis, unspecified; Z79.84 Long term (current) use of oral hypoglycemic drugs; W57.XXXA Bitten or stung by nonvenomous insect and other nonvenomous arthropods, initial encounter; R50.9 Fever, unspecified; A41.89 Other specified sepsis; B34.9 Viral infection, unspecified
CPT/HCPCS: 36415; 36600; 71020; 71020-26; 80053; 81001; 82803; 83605; 85027; 85610; 85730; 86140; 86666; 86666-59; 87040; 93005; 96361; 96365; 96366; 96375; 96376; 99283-25; A9270-GY; J0131; J0696; J7030; J7040; J7050; J7620

== ENCOUNTER 2017-03-14 19:43 | Emergency (ER) | payer BC ==
--- NOTE | 2017-03-14 20:53 | EDM.PDOC ---
ED HPI GENERAL MEDICAL PROBLEM - General Chief Complaint: Fever Stated Complaint: 104 TEMP TICK BITE DSCH MON Time Seen by Provider: 03/14/17 20:16 Source of Information: Reports: Patient, Family, Old Records, RN Notes Reviewed History Limitations: Reports: No Limitations - History of Present Illness INITIAL COMMENTS - FREE TEXT/NARRATIVE: 61-year-old female presents emergency department date complaint fever, she has a complex past medical history in the last 3 months since December she initially ended up with infectious process on her left elbow ended up having methicillin sensitive staph aureus grow from the bursa of the olecranon requiring orthopedic incision and drainage she was on IV Ancef for approximately 6 weeks unfortunately she was just discharged from the hospital 4 days prior for probable anaplasmosis and is currently on doxycycline. For this particular event she states she was afebrile for about 48 hours after discharge from hospital but now the fevers have been returning up to 102 today and she is complaining of left elbow tenderness with a surgical wound that does not heal, she denies any warmth to the joint Treatments RECREATION OFFICER: Reports: Acetaminophen - Related Data Allergies Allergy/AdvReac Type Severity Reaction Status Date / Time No Known Allergies Allergy Verified 03/14/17 20:05 Home Meds: Home Meds Folic Acid 1 mg PO DAILY 03/08/17 [History] Lisinopril 40 mg PO DAILY 03/08/17 [History] Methotrexate Sodium [Methotrexate] 20 mg PO WEEKLY 03/08/17 [History] Naproxen 500 mg PO DAILY 03/08/17 [History] amLODIPine Besylate [Amlodipine Besylate] 5 mg PO DAILY 03/08/17 [History] metFORMIN [Glucophage] 500 mg PO BIDMEALS 03/08/17 [History] Doxycycline Hyclate 100 mg PO BID #38 capsule 03/10/17 [Rx] Past Medical History Cardiovascular History: Reports: Hypertension [employer]OR [employer]OR History: Reports: Musculoskeletal History: Reports: Arthritis, Fracture, RA Other Musculoskeletal History: R leg Endocrine/Metabolic History: Reports: Diabetes, Type II - Infectious Disease History Infectious Disease History: Reports: Chicken Pox Social & Family History - Family History Musculoskeletal: Reports: RA - Tobacco Use Smoking Status *Q: Current Every Day Smoker Years of Tobacco use: 45 Packs/Tins Daily: 1 - Caffeine Use Caffeine Use: Reports: Coffee - Recreational Drug Use Recreational Drug Use: No ED ROS GENERAL - Review of Systems Review Of Systems: See Below Constitutional: Reports: Fever, Chills, Fatigue HEENT: Reports: No Symptoms Respiratory: Reports: No Symptoms Cardiovascular: Reports: No Symptoms GI/Abdominal: Reports: No Symptoms : Reports: No Symptoms Musculoskeletal: Reports: Joint Pain (Left elbow pain) Skin: Reports: Rash, Wound Neurological: Reports: No Symptoms ED EXAM, SEPSIS - Physical Exam Exam: See Below Text/Narrative:: Examination of the left elbow there is erythema about the size of a tennis ball , there is tenderness to the touch there is an open wound approximately 3 mm x 3 mm I don't appreciate any drainage surgical scar appears clean dry and intact Exam Limited By: No Limitations General Appearance: Alert, WD/WN, No Apparent Distress Respiratory/Chest: No Respiratory Distress, Lungs Clear, Normal Breath Sounds, No Accessory Muscle Use Cardiovascular: Regular Rate, Rhythm, No Murmur Course - Vital Signs Last Recorded V/S: Last Vital Signs Temp 98.6 F 03/14/17 23:19 Pulse 86 03/14/17 23:16 Resp 18 03/14/17 23:16 BP 154/66 H 03/14/17 23:16 Pulse Ox 90 L 03/14/17 23:16 - Orders/Labs/Meds Orders: Active Orders 24 hr Category Date Time Status Peripheral IV Care [RC] . DIRECTED Care 03/14/17 23:07 Active CULTURE BLOOD [BC] Urgent Lab 03/14/17 20:54 Received CULTURE BLOOD [BC] Urgent Lab 03/14/17 20:54 Received CULTURE URINE [RM] Urgent Lab 03/14/17 22:15 Received CULTURE WOUND + SMEAR [RM] Stat Lab 03/14/17 22:45 Results Sodium Chloride 0.9% [Saline Flush] Med 03/14/17 23:06 Active 10 ml FLUSH ASDIRECTED PRN Vancomycin 1 gm Med 03/14/17 23:06 Active Sodium Chloride 0.9% [Normal Saline] 250 ml IV ONETIME Blood Culture x2 Reflex Set [OM.PC] Urgent Oth 03/14/17 20:45 Ordered Peripheral IV Insertion Adult [OM.PC] Urgent Oth 03/14/17 23:07 Ordered Medication Orders Vancomycin HCl 1 gm/ Sodium (Chloride) 250 mls @ 150 mls/hr IV ONETIME ONE Stop: 03/15/17 00:45 Last Admin: 03/14/17 23:21 Dose: 150 mls/hr Sodium Chloride (Saline Flush) 10 ml FLUSH ASDIRECTED PRN PRN Reason: Keep Vein Open Last Admin: 03/14/17 23:32 Dose: 10 ml Labs: Laboratory Tests 03/14/17 03/14/17 03/14/17 Range/Units 20:54 20:54 20:54 WBC 9.2 (4.5-11.0) K/uL RBC 3.60 (3.30-5.50) M/uL Hgb 11.9 L (12.0-15.0) g/dL Hct 35.1 L (36.0-48.0) % MCV 98 (80-98) fL MCH 33 H (27-31) pg MCHC 34 (32-36) % Plt Count 93 L (150-400) K/uL Neut % (Auto) 41 (36-66) % Lymph % (Auto) 45 H (24-44) % [place] % (Auto) 10 H (2-6) % Eos % (Auto) 1 L (2-4) % Baso % (Auto) 4 H (0-1) % PT 12.5 H (9.5-12.0) sec INR 1.16 (0.80-1.20) APTT 28.9 (27.0-36.0) sec Sodium 137 L (140-148) mmol/L Potassium 4.2 (3.6-5.2) mmol/L Chloride 105 (100-108) mmol/L Carbon Dioxide 23 (21-32) mmol/L Anion Gap 13.2 (5.0-14.0) mmol/L BUN 24 H D (7-18) mg/dL Creatinine 0.8 (0.6-1.0) mg/dL Est Cr Clr Drug Dosing 51.70 mL/min Estimated GFR (MDRD) > 60 (>60) Glucose 157 H (74-106) mg/dL Lactic Acid (0.4-2.0) mmol/L Calcium 9.0 (8.5-10.1) mg/dL Total Bilirubin 0.9 (0.2-1.0) mg/dL AST 121 H D (15-37) U/L ALT 79 H (12-78) U/L Alkaline Phosphatase 309 H D (46-116) U/L C-Reactive Protein 9.66 H (0.0-0.3) mg/dL Total Protein 6.1 L (6.4-8.2) g/dL Albumin 2.4 L (3.4-5.0) g/dL Globulin 3.7 H (2.3-3.5) g/dL Albumin/Globulin Ratio 0.7 L (1.2-2.2) Urine Color Urine Appearance Urine pH (4.5-8.0) Ur Specific [place] (1.008-1.030) Urine Protein (NEGATIVE) mg/dL Urine Glucose (UA) (NEGATIVE) mg/dL Urine Ketones (NEGATIVE) mg/dL Urine Occult Blood (NEGATIVE) Urine Nitrite (NEGATIVE) Urine Bilirubin (NEGATIVE) Urine Urobilinogen (NORMAL) mg/dL Ur Leukocyte Esterase (NEGATIVE) Urine RBC (0-5) Urine WBC (0-5) Ur Epithelial Cells Amorphous Sediment Urine Bacteria Urine Mucus Urine Other 03/14/17 03/14/17 Range/Units 20:54 21:31 WBC (4.5-11.0) K/uL RBC (3.30-5.50) M/uL Hgb (12.0-15.0) g/dL Hct (36.0-48.0) % MCV (80-98) fL MCH (27-31) pg MCHC (32-36) % Plt Count (150-400) K/uL Neut % (Auto) (36-66) % Lymph % (Auto) (24-44) % [place] % (Auto) (2-6) % Eos % (Auto) (2-4) % Baso % (Auto) (0-1) % PT (9.5-12.0) sec INR (0.80-1.20) APTT (27.0-36.0) sec Sodium (140-148) mmol/L Potassium (3.6-5.2) mmol/L Chloride (100-108) mmol/L Carbon Dioxide (21-32) mmol/L Anion Gap (5.0-14.0) mmol/L BUN (7-18) mg/dL Creatinine (0.6-1.0) mg/dL Est Cr Clr Drug Dosing mL/min Estimated GFR (MDRD) (>60) Glucose (74-106) mg/dL Lactic Acid 1.7 (0.4-2.0) mmol/L Calcium (8.5-10.1) mg/dL Total Bilirubin (0.2-1.0) mg/dL AST (15-37) U/L ALT (12-78) U/L Alkaline Phosphatase (46-116) U/L C-Reactive Protein (0.0-0.3) mg/dL Total Protein (6.4-8.2) g/dL Albumin (3.4-5.0) g/dL Globulin (2.3-3.5) g/dL Albumin/Globulin Ratio (1.2-2.2) Urine Color [place] Urine Appearance Slightly cloudy Urine pH 5.0 (4.5-8.0) Ur Specific [place] 1.020 (1.008-1.030) Urine Protein 100 H (NEGATIVE) mg/dL Urine Glucose (UA) Normal (NEGATIVE) mg/dL Urine Ketones Negative (NEGATIVE) mg/dL Urine Occult Blood Negative (NEGATIVE) Urine Nitrite Negative (NEGATIVE) Urine Bilirubin Moderate (NEGATIVE) Urine Urobilinogen 4 (NORMAL) mg/dL Ur Leukocyte Esterase Negative (NEGATIVE) Urine RBC 0-5 (0-5) Urine WBC 5-10 H (0-5) Ur Epithelial Cells Many Amorphous Sediment Moderate Urine Bacteria Moderate Urine Mucus Moderate Urine Other Meds: Medications Generic Name Dose Route Start Last Admin Trade Name Freq PRN Reason Stop Dose Admin Vancomycin HCl 1 gm/ Sodium 250 mls @ 150 mls/hr 03/14/17 23:06 03/14/17 23: 21 Chloride IV 03/15/17 00:45 150 mls/hr ONETIME ONE Administration Sodium Chloride 10 ml 03/14/17 23:06 03/14/17 23:32 Saline Flush FLUSH 10 ml ASDIRECTED PRN Administration Keep Vein Open Discontinued Medications Generic Name Dose Route Start Last Admin Trade Name Freq PRN Reason Stop Dose Admin Sodium Chloride Confirm 03/14/17 23:14 03/14/17 23:18 Normal Saline Administered 03/14/17 23:15 Not Given Dose 250 mls @ as directed .ROUTE .STK-MED ONE Ibuprofen 600 mg 03/14/17 23:05 03/14/17 23:19 Motrin PO 03/14/17 23:06 600 mg ONETIME ONE Administration Vancomycin HCl Confirm 03/14/17 23:11 03/14/17 23:18 Vancomycin Administered 03/14/17 23:12 Not Given Dose 1 gm .ROUTE .STK-MED ONE Vancomycin HCl Confirm 03/14/17 23:13 03/14/17 23:18 Vancomycin Administered 03/14/17 23:14 Not Given Dose 1 gm .ROUTE .STK-MED ONE Departure - Departure Time of Disposition: 00:21 Disposition: Home, Self-Care 01 Condition: fair Clinical Impression: Fever Qualifiers: Fever type: unspecified Qualified Code(s): R50.9 - Fever, unspecified - Discharge Information Forms: ED Department Discharge Additional Instructions: Please report to emergency department 9 AM [facility] for an evaluation by Jonas Post from orthopedic surgery do not eat anything 6 hours prior to your appointment - My Orders Last 24 Hours: My Active Orders 03/14/17 20:45 Blood Culture x2 Reflex Set [OM.PC] Urgent 03/14/17 20:54 CULTURE BLOOD [BC] Urgent CULTURE BLOOD [BC] Urgent 03/14/17 22:15 CULTURE URINE [RM] Urgent 03/14/17 22:45 CULTURE WOUND + SMEAR [RM] Stat 03/14/17 23:06 Sodium Chloride 0.9% [Saline Flush] 10 ml FLUSH ASDIRECTED PRN Vancomycin 1 gm Sodium Chloride 0.9% [Normal Saline] 250 ml IV ONETIME 03/14/17 23:07 Peripheral IV Care [RC] . DIRECTED Peripheral IV Insertion Adult [OM.PC] Urgent - Assessment/Plan Last 24 Hours: My Active Orders 03/14/17 20:45 Blood Culture x2 Reflex Set [OM.PC] Urgent 03/14/17 20:54 CULTURE BLOOD [BC] Urgent CULTURE BLOOD [BC] Urgent 03/14/17 22:15 CULTURE URINE [RM] Urgent 03/14/17 22:45 CULTURE WOUND + SMEAR [RM] Stat 03/14/17 23:06 Sodium Chloride 0.9% [Saline Flush] 10 ml FLUSH ASDIRECTED PRN Vancomycin 1 gm Sodium Chloride 0.9% [Normal Saline] 250 ml IV ONETIME 03/14/17 23:07 Peripheral IV Care [RC] . DIRECTED Peripheral IV Insertion Adult [OM.PC] Urgent Plan: Assessment Acuity = acute Site and laterality = fever unclear etiology, cocaine the patient with known history of rheumatoid arthritis also history of septic bursa olecranon left side status post incision and draining as well as 2 weeks IV antibiotics Ancef and possible tickborne illness currently on doxycycline Etiology = suspicious for osteomyelitis of the left elbow Manifestations = fever, left elbow tenderness Location of injury = home Lab values = sodium low at 137 consistent hyponatremia, AST elevated 121 ALP elevated to 79 consistent elevated liver enzymes alkaline phosphatase elevated at 309 CRP elevated 9.66 of unclear etiology albumin low at 2.4 consistent hypoalbuminemia, lactic acid within normal limits CBC unremarkable, urinalysis reveals 5-10 wbc's consists of pyuria cultures pending, wound culture and blood cultures also pending Plan Discussed case with orthopedics on-call at [place] Jonas Post, recommended 1 dose vancomycin now, plan for surgical intervention in the morning she is to report to [place] at 9 AM emergency department will be nothing by mouth at that time Patient was in agreement with the plan all questions were answered, they were instructed to return to the emergency department or call for worsening symptoms. This note was dictated using [employer] voice recognition software please call with any questions.
[2017-03-14] MEDS ORDERED: Ibuprofen 600 MG Tab PO ONE (23:05)
[2017-03-14] MEDS ORDERED: Sodium Chloride 0.9% 10 ML Syringe FLUSH PRN (23:06)
[2017-03-14] MEDS ORDERED: Vancomycin 1 GM SDV ONE ×2 (23:11→23:13)
[2017-03-14] MEDS ORDERED: Sodium Chloride 0.9% 250 ML ONE (23:14)
[2017-03-14 23:41] VITALS: BP 154/66
== END 2017-03-15 00:30 | disposition home or self-care (01) ==
LOC: JP.ED 19:43
DX: R50.9 Fever, unspecified (principal); L53.9 Erythematous condition, unspecified; I10 Essential (primary) hypertension; E11.9 Type 2 diabetes mellitus without complications; M06.9 Rheumatoid arthritis, unspecified; F17.210 Nicotine dependence, cigarettes, uncomplicated; Z79.899 Other long term (current) drug therapy
CPT/HCPCS: 36415; 80053; 81001; 83605; 85025; 85610; 85730; 86140; 87040; 87070; 87086; 87205; 96365; 99284; A9270; J3370; J7050

== ENCOUNTER 2017-08-20 07:47 | Day surgery (SDC) | payer BC ==
[2017-08-20] MEDS ORDERED: Lactated Ringers 1,000 ML IV SCH (08:30)
[2017-08-20] MEDS ORDERED: Midazolam 1 MG/ML 2 ML SDV ONE (08:34)
[2017-08-20] MEDS ORDERED: fentaNYL 100 MCG/2 ML SDV ONE (08:34)
[2017-08-20] MEDS ORDERED: Propofol 200 MG/20 ML SDV ONE (08:34)
[2017-08-20 11:10] VITALS: BP 138/78
--- NOTE | 2017-08-20 11:31 | OR ---
DATE OF PROCEDURE: 08/20/2017 PREOPERATIVE DIAGNOSIS: Colon cancer screening. POSTOPERATIVE DIAGNOSES: 1. Colitis. 2. Diverticulosis. PROCEDURES: Colonoscopy to the cecum with biopsy of areas of inflammation. SURGEON: Mg Cotter MD. ANESTHESIA: IV anesthesia with monitored anesthesia care. INDICATION: This 62-year-old white female is referred for a colonoscopy. She says her last colonoscopic exam was done about ten years ago. I counseled her for the procedure including the risks and alternatives, and she gave her informed consent to proceed. DESCRIPTION OF PROCEDURE: The patient was placed in the left lateral decubitus position. IV anesthesia was administered by the Anesthesia Service. Time-out was held. A rectal exam was performed, which was unremarkable. The flexible video Olympus colonoscope was introduced through her anus, up her rectum, and out her colon all the way to the cecum. At about 35 cm from the anal verge, we started to encounter punctate areas of inflammation. We biopsied several of these. Once the cecum was reached, the scope was slowly withdrawn, examining the mucosa throughout. We encountered no new mucosal lesions until we reached the left colon. Here, and in the sigmoid colon, we saw very few scattered diverticula. No neoplastic lesions were seen. The scope was retroflexed in the rectum with the distal rectum appearing unremarkable. The scope was straightened and removed. She tolerated the procedure well. Mg Cotter MD /[id number] MTDD
== END 2017-08-20 10:50 | disposition home or self-care (01) ==
LOC: JP.SDS 07:47
PROVIDERS: ATTEND Surgery
DX: Z12.11 Encounter for screening for malignant neoplasm of colon (principal); K62.89 Other specified diseases of anus and rectum; K52.9 Noninfective gastroenteritis and colitis, unspecified; K57.30 Diverticulosis of large intestine without perforation or abscess without bleeding; E11.9 Type 2 diabetes mellitus without complications; F17.210 Nicotine dependence, cigarettes, uncomplicated
CPT/HCPCS: 45380; 88305; J2250; J2704; J3010; J7120

== ENCOUNTER 2021-12-04 14:56 | Emergency (ER) | payer MEDICARE, BC ==
[2021-12-04 15:35] VITALS: BP 147/65; PULSE 92
[2021-12-04 16:41] LABS: CORONAVIRUS COVID-19 NAA NEGATIVE (NEGATIVE)
[2021-12-04] MEDS ORDERED: Ondansetron 4 MG Tab.DIS PO ONE (16:53)
[2021-12-04] MEDS ORDERED: Scopolamine 1.5 MG Transdermal Patch TRDERM ONE (18:10)
== END 2021-12-04 18:35 | disposition home or self-care (01) ==
LOC: JP.ED 14:56
DX: K52.9 Noninfective gastroenteritis and colitis, unspecified (principal); I10 Essential (primary) hypertension; E11.9 Type 2 diabetes mellitus without complications; Z79.899 Other long term (current) drug therapy; Z79.82 Long term (current) use of aspirin; Z79.84 Long term (current) use of oral hypoglycemic drugs; Z72.0 Tobacco use; Z20.822 Contact with and (suspected) exposure to COVID-19
CPT/HCPCS: 0241U; 36415; 80053; 83605; 83690; 84484; 85025; 99283; 99284; A9270-GY; Q0162

== ENCOUNTER 2021-12-05 02:59 | Emergency (ER) | payer MEDICARE, BC ==
[2021-12-05 03:17] VITALS: BP 148/68; PULSE 83
[2021-12-05] MEDS ORDERED: Aluminum Hydroxide/Magnesium Hydroxide/Simethicone Susp 30 ML Cup PO STA (03:24)
[2021-12-05] MEDS ORDERED: HYDROmorphone 1 MG/ML Syringe IM ONE (03:24)
== END 2021-12-05 04:42 | disposition home or self-care (01) ==
LOC: JP.ED 02:59
DX: R10.13 Epigastric pain (principal); R14.3 Flatulence; I10 Essential (primary) hypertension; E11.9 Type 2 diabetes mellitus without complications; Z79.899 Other long term (current) drug therapy; Z72.0 Tobacco use
CPT/HCPCS: 74019; 74019-26; 96372; 99282; 99284-25; A9270-GY; J1170

== ENCOUNTER 2021-12-06 08:38 | Emergency (ER) | payer MEDICARE, BC ==
[2021-12-06] MEDS ORDERED: EPINEPHrine 1:10,000 1 MG/10 ML Syringe IV ONE ×3 (08:39→08:45)
[2021-12-06] MEDS: Sodium Chloride 0.9% 1,000 ML IV SCH ×3 (08:45→10:41)
[2021-12-06] MEDS ORDERED: Sodium Bicarbonate 8.4% 50 MEQ/50 ML Syringe IV ONE ×3 (08:53→09:13)
[2021-12-06] MEDS ORDERED: Lactated Ringers 1,000 ML IV SCH (09:00)
[2021-12-06] MEDS ORDERED: Meropenem 1 GM in Sodium Chloride 0.9% 100 ML IV ONE (09:30)
[2021-12-06 09:55] LABS: CORONAVIRUS COVID-19 NAA NEGATIVE (NEGATIVE)
[2021-12-06 10:32] VITALS: BP 176/152; PULSE 103
[2021-12-06] MEDS ORDERED: Sodium Chloride 0.9% 1,000 ML IV SCH (13:15)
== END 2021-12-06 10:41 ==
LOC: JP.ED 08:38
DX: I46.9 Cardiac arrest, cause unspecified (principal); I10 Essential (primary) hypertension; E11.9 Type 2 diabetes mellitus without complications; Z79.84 Long term (current) use of oral hypoglycemic drugs; Z79.899 Other long term (current) drug therapy
CPT/HCPCS: 0241U; 31500; 36415; 36600; 51702; 71045; 71045-26; 71250; 74018; 74018-26; 74176; 76705; 76705-26; 80053; 82803; 83605; 84484; 85025; 85610; 85730; 86140; 87040; 87077; 92950; 96365; 96368; 96375; 96376; 99285-25; 99291; J0171; J2185; J3370; J7030; J7050; J7120